=== PATIENT | female | born 1965 | race Caucasian/White ===

== ENCOUNTER 2019-01-27 22:46 | Emergency (ER) | payer BC ==
[2019-01-27] MEDS ORDERED: Augmentin 875-125 Tablet PO ONE (22:58)
[2019-01-27] MEDS ORDERED: Adacel Vial IM ONE ×2 (23:00→23:04)
[2019-01-27] MEDS ORDERED: ULTRAM 50 MG PO ONE (23:00)
[2019-01-27] MEDS ORDERED: ULTRAM 50 MG ONE (23:03)
[2019-01-27] MEDS ORDERED: Augmentin 875-125 Tablet ONE (23:04)
[2019-01-27 23:06] VITALS: BP 147/96; PULSE 81; O2SAT 98
--- NOTE | 2019-01-27 23:45 | ERPHSYRPT ---
- History of Present Illness Time Seen by Provider: 01/27/19 22:58 Source: patient Exam Limitations: no limitations Patient Subjective Stated Complaint: Dog bite to right ear Triage Nursing Assessment: Patient ambulated back to ED and transferred to bed. Patient's skin pink warm and dry. Patient complains of dog bite to right ear . Patient states she was bending down and startled the dog and he bit her on the right ear causing deanne Patient states dog belongs to her daughter, but lives with patient. Dog is pittbull mix 7 years half of right ear noted to be absent. Right ear noted to have cartlidge exposed and blood. Physician History: Pt states, her daughter's dog bit her right ear tonight. She denies other injury , states, her tetanus is up to date. Timing/Duration: abrupt onset Severity: severe ENT Location: ear (R) Prearrival Treatment: no prearrival treatment Modifying Factors: Improves With: nothing Associated Symptoms: ear pain (R) Allergies/Adverse Reactions: codeine Allergy (Verified 01/27/19 22:48) Hx Tetanus, Diphtheria Vaccination/Date Given: (unsure) Hx Influenza Vaccination/Date Given: No Hx Pneumococcal Vaccination/Date Given: No Immunizations Up to Date: Yes - Review of Systems Constitutional: No Symptoms Ears, Nose, & Throat: Ear Pain Respiratory: No Symptoms Cardiac: No Symptoms Abdominal/Gastrointestinal: No Symptoms Genitourinary Symptoms: No Symptoms Musculoskeletal: No Symptoms Skin: No Symptoms Neurological: No Symptoms Psychological: No Symptoms All Other Systems: Reviewed and Negative - Past Medical History Pertinent Past Medical History: Yes Neurological History: No Pertinent History ENT History: No Pertinent History Cardiac History: Hypertension, Other Respiratory History: No Pertinent History Endocrine Medical History: Hypothyroidism Musculoskeletal History: No Pertinent History GI Medical History: No Pertinent History History: No Pertinent History Psycho-Social History: No Pertinent History Female Reproductive Disorders: No Pertinent History Other Medical History: Grave's disease - Past Surgical History Neuro Surgical History: No Pertinent History Cardiac: No Pertinent History Respiratory: No Pertinent History Gastrointestinal: Cholecystectomy Genitourinary: No Pertinent History Musculoskeletal: Orthopedic Surgery Female Surgical History: Hysterectomy, Tubal Ligation Other Surgical History: Michael foot surgery 2013 - Social History Smoking Status: Never smoker Exposure to second hand smoke: No Drug Use: none Patient Lives Alone: No - Female History Hx Last Menstrual Period: Hysterectomy Hx Now: No - Nursing Vital Signs Nursing Vital Signs: Initial Vital Signs Temperature 98.0 F 01/27/19 22:50 Pulse Rate 81 01/27/19 22:50 Respiratory Rate 18 01/27/19 22:50 Blood Pressure 147/96 01/27/19 22:50 O2 Sat by Pulse Oximetry 98 01/27/19 22:50 Pain Scale Pain Intensity 4 - Physical Exam General Appearance: no apparent distress Ear Exam: right ear: other (right auricle cranial and posterior 1/3 is missing, the wound edges are irregular, slight bloody oozing noted, no arterial bleeding , no obvious cartilage exposure visible, the widest dehiscence is 4-5 mm, the wound edges are spont. approximated, and the wound base is mostly non bleeding soft tissues. ) Nasal Exam: normal inspection Throat Exam: pharynx normal Neck Exam: normal inspection, non-tender, supple Cardiovascular/Respiratory Exam: chest non-tender, normal breath sounds, heart sounds normal, no ecchymosis Abdominal Exam: non-tender, soft Neurologic Exam: alert, oriented x 3, cooperative, normal mood/affect Skin Exam: normal color, warm, dry, No diaphoresis SpO2 Interpretation: normal SpO2: 98 O2 Delivery: Room Air - Course Nursing assessment & vital signs reviewed: Yes Ordered Tests: Active Orders 24 hr Category Date Time Status Wound Care STAT Care 01/27/19 23:01 Active Medication Summary Discontinued Medications Generic Name Dose Route Start Last Admin Trade Name Freq PRN Reason Stop Dose Admin Amoxicillin/Clavulanate Potassium 875 mg 01/27/19 22:58 01/27/19 23:10 Augmentin 875-125 Tablet PO 01/27/19 22:59 875 mg STAT ONE Administration Amoxicillin/Clavulanate Potassium Confirm 01/27/19 23:04 Augmentin 875-125 Tablet Administered 01/27/19 23:05 Dose 875 mg .ROUTE .STK-MED ONE Diphtheria/Tetanus/Acell Pertussis 0.5 ml 01/27/19 23:00 01/27/19 23:16 Adacel Vial IM 01/27/19 23:01 Not Given .ONCE ONE Diphtheria/Tetanus/Acell Pertussis Confirm 01/27/19 23:04 Adacel Vial Administered 01/27/19 23:05 Dose 0.5 ml IM .STK-MED ONE Tramadol HCl 50 mg 01/27/19 23:00 01/27/19 23:10 Ultram 50 Mg PO 01/27/19 23:01 50 mg STAT ONE Administration Tramadol HCl Confirm 01/27/19 23:03 Ultram 50 Mg Administered 01/27/19 23:04 Dose 50 mg .ROUTE .STK-MED ONE - Progress Progress: improved Progress Note: 01/27/19 23:46 Pt was started on PO Augmentin, given Ultram for pain control, the wound was cleaned with saline and Betadine, bleeding is controlled, wound edges are satisfactorily approximated, no sutures needed, will treat it open, sterile saline gauze placed to the wound, after bleeding stopped changed to nonadhesive dressing. She was advised to cleanse the wound daily with sterile saline and change sterile dressing. Counseled pt/family regarding: diagnosis, need for follow-up - Departure Departure Disposition: Home Clinical Impression: Ear lobe laceration Qualifiers: Encounter type: initial encounter Laterality: right Qualified Code(s): S01.311A - Laceration without foreign body of right ear, initial encounter Dog bite Qualifiers: Encounter type: initial encounter Qualified Code(s): W54.0XXA - Bitten by dog, initial encounter Condition: Stable Critical Care Time: No Referrals: SLY NOVAK MD [Primary Care Provider] - Instructions: Animal Bites (DC), Wound Care (DC) Additional Instructions: Change sterile dressing daily, after careful saline wash, and follow up with your physician in 2-3 days, return if severe pain, swelling, purulent discharge or fever> 102 F! Prescriptions: Amox Tr/Potass Clav. 875 mg [Augmentin 875-125 Tablet] 875 mg PO BID #10 tablet Tramadol HCl 50 mg [Ultram 50 mg] 50 mg PO Q6H PRN #10 tablet PRN Reason: Pain
[2019-01-28] MEDS ORDERED: Adacel Vial IM ONE (07:20)
== END 2019-01-28 00:14 | disposition home or self-care (01) ==
LOC: ED 22:46
DX: S01.311A Laceration without foreign body of right ear, initial encounter (principal); W54.0XXA Bitten by dog, initial encounter; I10 Essential (primary) hypertension; E03.9 Hypothyroidism, unspecified
CPT/HCPCS: 90715; 99283; A9270-GY